=== PATIENT | male | born 1985 | race Hispanic/Latino ===

== ENCOUNTER 2025-05-25 15:31 | Emergency (ER) | payer SELFPAY ==
[2025-05-25 15:35] VITALS: BP 135/98; PULSE 82; RESP 18; TEMP 36.6; O2SAT 97
--- NOTE | 2025-05-25 16:33 | EX.ED.DYSGE1 ---
HPI History of Present Illness Chief Complaint: GI Bleed Narrative Narrative: Patient is a 40-year-old male with no known significant past medical history who presents to the emergency department chief complaint of bump near his rectal region as well as having pain and some bleeding. Patient states that this is been going on for approximately 4 days and states that the pain had significantly worsened prompting him to come here for further evaluation management. Patient denies any blood thinner medications. 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 [facility] Medical History no medical history Home Medications ?Medication ?Instructions ?Recorded ?Last Taken ?Type lidocaine 5 % topical cream 1 applic topical TID PRN pain 05/25/25 Unknown Rx #14.17 grams ondansetron 4 mg disintegrating 4 mg PO Q6H PRN nausea and 05/25/25 Unknown Rx tablet vomiting #20 tabs oxycodone-acetaminophen 5 mg-325 1 tab PO Q6H PRN pain 2 days #8 05/25/25 Unknown Rx mg tablet (Endocet) tabs Allergy/AdvReac Type Severity Reaction Status Date / Time No Known Allergies Allergy Verified 05/25/25 15:35 Family History no significant family his Surgical History no surgical history Social History Smoking Status: Current some day smoker tobacco type: cigarettes ROS ROS ED ROS Narrative Constitutional: Denies any fevers or chills Abdomen: Denies abdominal pain nausea vomit diarrhea : Denies urinary symptoms Rectal: Complains of rectal pain as noted above Neurological: Denies any numbness, weakness, tingling Musculoskeletal: Denies back pain Skin: Denies any rashes or lesions EXAM Physical Exam Narrative Exam Narrative: General: Patient was sitting up at bedside did appear to be uncomfortable secondary to the pain Head: Atraumatic, normocephalic Eyes: PERRL bilaterally, EOMI bilaterally, no conjunctival injection noted Neck: Soft, supple, trachea midline Cardiovascular: Regular rate Abdomen: Soft, nondistended, nontender to palpation Rectal: Patient has evidence of external hemorrhoid noted at the 3 o'clock position that is thrombosed Extremities: +5/5 strength noted in the bilateral lower extremities Neurological: Patient follow commands that he was at [facility] year is 2024 Skin: Warm, dry, see rectal Const Vital Signs: 05/25/25 15:35 Temperature 97.8 F Temperature Source Temporal Pulse Rate 82 Respiratory Rate 18 Blood Pressure 135/98 H Blood Pressure Mean 110 Pulse Ox 97 Oxygen Delivery Method Room Air MDM MDM MDM Narrative Medical decision making narrative: Patient is a 40-year-old male who presents to the emergency department with a chief complaint of rectal pain. On the differential diagnosis includes but limited to internal hemorrhoids, external hemorrhoids, thrombosed hemorrhoid, perianal abscess, perirectal abscess. Thrombosed hemorrhoid was incised see procedure note for separate details. Clot burden was expressed which was significant amount. Patient will be given nifedipine topical cream as well as was advised to do sitz bath as especially after bowel movements. He was also advised follow-up with general surgery team in outpatient setting. Patient will given few pain pills to help with severe pain to help him get sleep at night. Patient was advised to ensure that he has soft stools to avoid from straining. He is advised return with worsening symptoms or concerns. He is agreeable to plan all course concerns answered discharged home in stable condition. Procedure note Timeout protocol was performed prior to initiating procedure. The area was prepped and draped in the usual, sterile manner. The site was anesthetized with 1% percent lidocaine without epinephrine. A elliptical incision along the local skin lines were made and large clot burden.. Bleeding was minimal. Packing none Follow-up: The patient tolerated procedure well without complications. Standard postprocedure care is explained and return precautions were given. Discharge Plan Triage Chief Complaint: GI Bleed ED Provider: Beltran Vincent Dx/Rx/DC Orders Clinical Impression: External hemorrhoid, thrombosed, Pain, rectal Prescriptions: New oxycodone-acetaminophen [Endocet] 5-325 mg tablet 1 tab PO Q6H PRN (Reason: pain) 2 Days Qty: 8 0RF ondansetron 4 mg tablet,disintegrating 4 mg PO Q6H PRN (Reason: nausea and vomiting) Qty: 20 0RF lidocaine 5 % cream 1 applic topical TID PRN (Reason: pain) Qty: 14.17 0RF Primary Care Provider: Care Physician,No Primary Referrals: NOT,DEFINED [Non-Staff] - Amarjit Pérez MD [Med Staff - Active Staff] - Cassandra Valiente Juana, CREDIT COUNSELOR-C [[facility]] - Activity Restrictions/Additional Instructions: Rotate Tylenol and ibuprofen [id number] when you this can take something every 3 hours for pain with max dose of Tylenol and 24 hours 4000 mg max dose of ibuprofen in 24 hours 3200 mg. Use the topical cream knew the site that is hurting as prescribed. Use the Endocet and Zofran for severe pain do not operate anything in the influence this medication as it can make you sleepy drowsy. Take this at night when you go to bed. Follow-up with the general surgeon they referred to as well as a primary care doctor. Return with worsening symptoms or concerns. After bowel movements especially need to perform sitz bath with filling the bathtub with small amount of warm water with soap and sit in this area to cleanse the wound. Print Language: Bulgarian Disposition Disposition: Home, Self Care
[2025-05-25] MEDS: Lidocaine 1% (20 ml mdv) 20 ML Vial 10 ML INFILT (17:27)
[2025-05-25 17:46] VITALS: BP 125/87; PULSE 82; RESP 18; TEMP 36.6; O2SAT 97
== END 2025-05-25 17:47 | disposition home or self-care (01) ==
PROVIDERS: Emergency Provider Emergency Medicine; Visit Provider Emergency Medicine
DX: K64.5 Perianal venous thrombosis (principal); F17.210 Nicotine dependence, cigarettes, uncomplicated
CPT/HCPCS: 46083; 99282